=== PATIENT | male | born 1965 | race Two or more races ===

== ENCOUNTER 2019-06-08 08:59 | Inpatient (IN) | payer BC, OTHER ==
[~2019-06-08] VITALS: Ht 154.9 cm; Wt 68.6 kg
[2019-06-08 09:52] LABS: Basophils # (auto) 0.1 uL; Basophils % (auto) 0.5 % (0.0-2.0); Lymphocytes # (auto) 1.7 uL
[2019-06-08 09:53] LABS: Eosinophils # (auto) 0.2 uL; Hematocrit 42.9 % (41.0-53.0); Mean Corpuscular Hgb Conc. 34.9 g/dL (32.0-36.0); Mean Corpuscular Volume 100.2 fL (80.0-100.0); Monocytes # (auto) 1.1 uL; Neutrophils # (auto) 12.4 uL; Neutrophils % (auto) 80.5 % (37.0-80.0); Platelet Count (auto) 185 10^3/uL (140-450); Red Blood Cells 4.28 10^6/uL (4.5-5.90); Red Cell Distribution Width 12.9 % (11.8-14.3); White Blood Cell 15.5 10^3/uL (4.4-10.8)
[2019-06-08 09:57] LABS: Urine Bacteria FEW /hpf (None Seen); Urine Blood 2+ /uL (Negative); Urine Budding Yeast OCCASIONAL /hpf (None Seen); Urine Mucus FEW (None Seen); Urine Specific Gravity 1.023 (1.001-1.035); Urine WBC 446 /hpf (0 - 3); Urine WBC Clumps PRESENT /hpf (None Seen)
[2019-06-08 10:00] LABS: Albumin 3.4 g/dL (3.4-5.0); Anion Gap 7 (5-15); BUN/Creatinine Ratio 12.4; Blood Urea Nitrogen 12 mg/dL (7-18); Calcium 8.9 mg/dL (8.5-10.1); Carbon Dioxide 26 mmol/L (21-32); Chloride 106 mmol/L (98-107); GFR African American 103 mL/min; GFR Non-African American 85 mL/min; Glucose 117 mg/dL (74-106); Potassium 4.1 mmol/L (3.5-5.1); Sodium 139 mmol/L (136-145)
[2019-06-08 10:03] LABS: Alanine Aminotransferase 32 U/L (16-61); Alkaline Phosphatase 78 U/L (45-117); Aspartate Aminotransferase 20 U/L (15-37); Bilirubin, Total 1.3 mg/dL (0.2-1.0); Total Protein 7.7 g/dL (6.4-8.2)
[2019-06-08] MEDS ORDERED: SODIUM CHLORIDE 0.9% 1,000 ML IV ONE ×2 (11:00)
[2019-06-08] MEDS ORDERED: cefTRIAXone SOD 1,000 MG VL IM ONE (11:00)
[2019-06-08] MEDS ORDERED: IOHEXOL 300 MG/ML 100ML BOTTLE IJ ONE (11:04)
[2019-06-08] MEDS ORDERED: cefTRIAXone 1GM/50ML D5W 50 ML IV ONE (12:00)
[2019-06-08] MEDS ORDERED: TEMAZEPAM 15 MG CAP PO PRN (12:45)
[2019-06-08] MEDS ORDERED: PROMETHAZINE HCL 25 MG/ML 1ML IV PRN (12:45)
[2019-06-08] MEDS ORDERED: ACETAMINOPHEN 500 MG TAB PO PRN (12:45)
[2019-06-08] MEDS: SODIUM CHLORIDE 0.9% 1,000 ML IV SCH ×2 (12:50→22:11)
--- NOTE | 2019-06-08 14:44 | NUR ---
MS admit from ER STEPHANI HOLLAND admitted to tele/MS after SBAR received. Patient oriented to GREG MCCLENDON, RN primary RN, unit, room 223A, bed, and unit policies regarding patient care and visiting hours. Patient weighed by bedscale and encouraged to call if they need something. All questions and concerns addressed, patient verbalized understanding. Bed in low and locked position, rails up x2, no-slip socks on. Family at bedside.
[2019-06-08] MEDS ORDERED: GARL400T13 PO (15:05)
[2019-06-08] MEDS ORDERED: IBUP400T21 PO (15:05)
--- NOTE | 2019-06-08 15:40 | NUR ---
JAGRUTI HEATH AT BEDSIDE-UROLOGY
[2019-06-08] MEDS ORDERED: PNEUMOCOCCAL VACC POLYS 25 MCG/0.5 ML VIAL IM ONE (16:45)
[2019-06-08 17:29] VITALS: BP 126/75
--- NOTE | 2019-06-08 18:58 | NUR ---
PATIENT COMPLAINING OF PAIN SLIGHT FEVER 99.0 AND PAIN WHOLE BODY, PATIENT ABLE TO URINATE BUT PAINFUL. COOLING MEASURES INITIATED AND WILL MEDICATE FOR PAIN ORDERED.
[2019-06-08] MEDS: traMADol HCL 50 MG TAB PO PRN (19:00)
--- NOTE | 2019-06-08 19:35 | NUR ---
Opening Shift Note Assumed care of patient, awake and alert x4. No S/S of distress/SOB. Patient was recently medicated for pain with tramadol as ordered, patient states he feels like it is working and currently has pain 4/0-10 which is tolerable for him. Instructed on POC and to call for assist PRN, will continue to monitor for changes Q1hr and PRN.
[2019-06-08 21:46] VITALS: BP 132/77
[2019-06-08] MEDS: FAMOTIDINE 20 MG TAB PO SCH (22:11)
[2019-06-09 04:46] VITALS: BP 126/75
[2019-06-09 07:17] LABS: Basophils # (auto) 0 uL; Basophils % (auto) 0.3 % (0.0-2.0); Eosinophils # (auto) 0.1 uL; Eosinophils % (auto) 0.6 % (0.0-7.0); Hematocrit 38.8 % (41.0-53.0); Hemoglobin 13.9 g/dL (13.5-17.5); Lymphocytes # (auto) 0.8 uL; Lymphocytes % (auto) 7.8 % (10.0-50.0); Mean Corpuscular Hemoglobin 35.9 pg (28.0-32.0); Mean Corpuscular Hgb Conc. 35.7 g/dL (32.0-36.0); Mean Corpuscular Volume 100.4 fL (80.0-100.0); Monocytes # (auto) 0.7 uL; Monocytes % (auto) 7.1 % (0.0-12.0); Neutrophils # (auto) 8.8 uL; Neutrophils % (auto) 84.2 % (37.0-80.0); Platelet Count (auto) 168 10^3/uL (140-450); Red Blood Cells 3.86 10^6/uL (4.5-5.90); Red Cell Distribution Width 12.7 % (11.8-14.3); White Blood Cell 10.4 10^3/uL (4.4-10.8)
[2019-06-09 07:33] LABS: Albumin 2.9 g/dL (3.4-5.0); BUN/Creatinine Ratio 11.9
[2019-06-09 07:35] LABS: Bilirubin, Total 0.8 mg/dL (0.2-1.0); Total Protein 6.6 g/dL (6.4-8.2)
--- NOTE | 2019-06-09 07:55 | NUR ---
Opening Shift Note Assumed care of patient, awake and alert. No S/S of distress/SOB or pain. Instructed on POC and to call for assist PRN, will continue to monitor for changes Q1hr and PRN.
[2019-06-09 08:42] VITALS: BP 131/82
[2019-06-09] MEDS: cefTRIAXone 1GM/50ML D5W 50 ML IV SCH (09:13)
[2019-06-09] MEDS: FAMOTIDINE 20 MG TAB PO SCH ×2 (09:13→21:59)
[2019-06-09] MEDS: SODIUM CHLORIDE 0.9% 1,000 ML IV SCH (09:14)
[2019-06-09 12:00] VITALS: BP 137/79
--- NOTE | 2019-06-09 12:15 | NUR ---
PAGED [employer] OPERATOR LEFT MESSAGE REGARDING NEW ORDER FOR TRANSPORT TO [facility]
[2019-06-09] MEDS: traMADol HCL 50 MG TAB PO PRN (13:29)
[2019-06-09] MEDS: SODIUM CHLOR 0.9% PF (SALINE LOCK) 10ML VIAL/SYR IV SCH ×2 (13:30→21:59)
--- NOTE | 2019-06-09 16:44 | NUR ---
Transfer packet faxed to [facility]. [facility] is on will call. I have not heard back from [facility] as of yet
[2019-06-09 17:00] VITALS: BP 131/74
--- NOTE | 2019-06-09 17:58 | NUR ---
PT AWAKE ALERT FAMILY AT BEDSIDE, NOTIFIED PT THAT GLOVE OPERATOR HAS FAXED HIS PAPERWORK OVER TO [facility], AWAITING WORD BACK FROM THEM TO TRANSFER
--- NOTE | 2019-06-09 19:50 | NUR ---
Patient called complaining of feeling feverish. Assessed the temperature orally it was 99.9 degrees. Blankets removed and cooling measures implemented, will reassess and continue to monitor patient.
--- NOTE | 2019-06-09 20:15 | NUR ---
Temperature reassessed Oral temperature is now 99.4 degrees, cooling measures are still in place. Patient states he feels a little better but still warm.
[2019-06-09 23:14] VITALS: BP 142/87
[2019-06-10 05:21] VITALS: BP 120/70
[2019-06-10] MEDS: SODIUM CHLOR 0.9% PF (SALINE LOCK) 10ML VIAL/SYR IV SCH ×3 (05:39→21:14)
[2019-06-10 10:00] VITALS: BP 136/70
[2019-06-10] MEDS: FAMOTIDINE 20 MG TAB PO SCH ×2 (10:09→21:13)
[2019-06-10] MEDS: cefTRIAXone 1GM/50ML D5W 50 ML IV SCH (10:09)
[2019-06-10 13:00] VITALS: BP 110/70
[2019-06-10 14:00] VITALS: BP 110/70
--- NOTE | 2019-06-10 14:12 | NUR ---
NUTRITION CONSULT/ASSESSMENT NOTES Please refer to link notes of nutrition screen form filed under the intervention section of the plan of care for further details. Est. Needs: 1750 kcal to 2150 kcal (25-30 kcal/kgBW), 71 gms to 106 gms pro (1.0-1.5 gms/kgBW d/t mod hypoalbuminemia, CA). Will continue to monitor pertinent labs and reassess nutrient need prn Thank you for this consult. Addendum: 06/10/19 at [address] Amended: Links added.
--- NOTE | 2019-06-10 15:42 | NUR ---
TRANSFER: [facility] ([facility] has denied pt due to no confirmed dx via bx
[2019-06-10 17:00] VITALS: BP 123/77
--- NOTE | 2019-06-10 18:55 | NUR ---
END OF SHIFT NOTE PATIENT AWAKE AND ALERT SITTING UP IN BED. NO S/S OF DISTRESS OR SOB NOTED. BED IN LOWEST LOCKED POSITION, CALL LIGHT WITHIN REACH. WILL ENDORSE CARE TO NOC RN.
--- NOTE | 2019-06-10 19:45 | NUR ---
Opening Shift Note Assumed care of patient, awake and alert. No S/S of distress/SOB or pain. Bed locked in lowest position, side rails upx2, call light within reach. Instructed on POC and to call for assist PRN, will continue to monitor for changes Q1hr and PRN.
[2019-06-10 21:30] VITALS: BP 121/88
[2019-06-11 05:00] VITALS: BP 112/72
[2019-06-11] MEDS: SODIUM CHLOR 0.9% PF (SALINE LOCK) 10ML VIAL/SYR IV SCH ×2 (05:56→14:00)
--- NOTE | 2019-06-11 07:50 | NUR ---
OPENING SHIFT NOTE ASSUMED CARE OF PATIENT. PATIENT AWAKE AND ALERT SITTING UP IN BED. NO S/S OF DISTRESS OR SOB NOTED. BED IN LOWEST LOCKED POSITION, CALL LIGHT WITHIN REACH REVIEWED POC. WILL CONTINUE TO MONITOR.
[2019-06-11 09:00] VITALS: BP 105/59
[2019-06-11] MEDS: FAMOTIDINE 20 MG TAB PO SCH (10:53)
[2019-06-11] MEDS: cefTRIAXone 1GM/50ML D5W 50 ML IV SCH (10:54)
--- NOTE | 2019-06-11 11:45 | NUR ---
AT BEDSIDE DR HE AT BEDSIDE. NEW ORDERS RECEIVED. WILL CARRY OUT ORDERED.
--- NOTE | 2019-06-11 12:00 | NUR ---
CYTOLOGY URINE SENT FOR CYTOLOGY AT THIS TIME.
[2019-06-11 13:00] VITALS: BP 96/63
[2019-06-11 16:30] VITALS: BP 114/69
[2019-06-11 16:53] VITALS: BP 114/69
--- NOTE | 2019-06-11 16:55 | NUR ---
NO CALL BACKS FROM [facility] OR [facility], WILL HAVE TO TRY MORE TOMORROW
--- NOTE | 2019-06-11 18:45 | NUR ---
DISCHARGED PATIENT DISCHARGED HOME AFTER ALL DISCHARGE INFORMATION GIVEN AND ALL QUESTIONS AND CONCERNS ADDRESSED. PATIENT WAS GIVEN INFORMATION TO REACH OUT TO [facility] AND [facility] AND INSTRUCTED TO CALL [facility] IF NOTHING HAS BEEN TAKEN CARE OF WITHIN 3 WEEKS. PATIENT GIVEN MARK MANUEL CARD TO ASSIST IN PCP. IV WAS REMOVED USING CLEAN STERILE TECHNIQUE, CATHETER INTACT UPON REMOVAL, PRESSURE DRESSING APPLIED. PNUMOVAX ADMINISTERED AT DISCHARGE. NO S/S OF DISTRESS OR SOB NOTED UPON DISCHARGE.
== END 2019-06-11 18:45 | disposition home or self-care (01) | DRG 872 ==
LOC: ER 08:59 → OVERFLOW 12:40 → UNDOADMIN 12:40 → OVERFLOW 12:41 → CENTRAL 14:47
PROVIDERS: ADMIT Internal Medicine; ATTEND Internal Medicine
DX: A41.51 Sepsis due to Escherichia coli [E. coli] (principal); N39.0 Urinary tract infection, site not specified; F17.210 Nicotine dependence, cigarettes, uncomplicated; Z80.51 Family history of malignant neoplasm of kidney; Z82.49 Family history of ischemic heart disease and other diseases of the circulatory system; Z85.528 Personal history of other malignant neoplasm of kidney; Z83.3 Family history of diabetes mellitus; Z87.442 Personal history of urinary calculi
CPT/HCPCS: 36415; 74176; 74177; 76775; 80053; 81001; 85025; 87086; 87088; 87186; 96365; G0378; J0696

== ENCOUNTER 2019-06-30 14:24 | Emergency (ER) | payer BC ==
[~2019-06-30] VITALS: Ht 177.8 cm; Wt 79.4 kg
[~2019-06-30 14:24] MED LIST: GARL400T13 PO; IBUP400T21 PO
[2019-06-30 15:39] LABS: Urine Bacteria NONE SEEN /hpf (None Seen); Urine Blood 3+ /uL (Negative); Urine WBC 1147 /hpf (0 - 3); Urine WBC Clumps PRESENT /hpf (None Seen)
[2019-06-30 15:45] LABS: Urine Specific Gravity 1.024 (1.001-1.035)
[2019-06-30] MEDS: cefTRIAXone SOD 1,000 MG VL IM ONE ×3 (18:10→18:34)
[2019-06-30 18:34] VITALS: BP 120/74
== END 2019-06-30 18:41 | disposition home or self-care (01) ==
LOC: ER 14:32
DX: N39.0 Urinary tract infection, site not specified (principal); F17.210 Nicotine dependence, cigarettes, uncomplicated; Z79.1 Long term (current) use of non-steroidal anti-inflammatories (NSAID); Z79.899 Other long term (current) drug therapy
CPT/HCPCS: 81001; 96372; 99283; J0696

== ENCOUNTER 2021-06-25 14:25 | Inpatient (IN) | payer BC, MEDICAID, OTHER ==
[~2021-06-25] VITALS: Ht 188 cm; Wt 79.0 kg
[~2021-06-25 14:25] MED LIST changes: -IBUP400T21 PO; +IBUP400T22 PO
[2021-06-25] MEDS ORDERED: ACETAMINOPHEN 500 MG TAB PO ONE (14:45)
[2021-06-25 15:14] LABS: Urine Bacteria FEW /hpf (None Seen); Urine Blood TRACE /uL (Negative); Urine WBC 112 /hpf (0 - 3)
[2021-06-25 15:23] LABS: Albumin 3.3 g/dL (3.4-5.0); Calcium 8.7 mg/dL (8.5-10.1); Potassium 3.7 mmol/L (3.5-5.1)
[2021-06-25 15:27] LABS: BUN/Creatinine Ratio 6.5; Bilirubin, Total 1.9 mg/dL (0.2-1.0)
[2021-06-25 15:29] LABS: Hematocrit 44.3 % (41.0-53.0); Hemoglobin 15.6 g/dL (13.5-17.5); Mean Corpuscular Hemoglobin 37.1 pg (28.0-32.0); Mean Corpuscular Hgb Conc. 35.2 g/dL (32.0-36.0); Mean Corpuscular Volume 105.5 fL (80.0-100.0)
[2021-06-25 15:41] LABS: Basophils % (manual) 0 (0.0-2.0); Blast Cells 0; Eosinophils % (manual) 0 (0-7); Metamyelocytes % 0; Myelocytes % 0; Promyelocytes % 0; Reactive Lymphocytes 0
[2021-06-25] MEDS ORDERED: cefTRIAXone 1GM/50ML D5W 50 ML IV ONE (16:00)
[2021-06-25 16:30] LABS: Band Neutrophils % (manual) 12; Lymphocytes % (manual) 2 (10.0-50.0); Monocytes % (manual) 7 (0-12)
[2021-06-25] MEDS ORDERED: PIPERACILLIN-TAZOB 3.375GM 100 ML IV ONE (17:30)
[2021-06-25] MEDS ORDERED: NITROGLYCERIN 0.4 MG SL TAB SL PRN (17:30)
[2021-06-25] MEDS ORDERED: MORPHINE SULF INJ 2 MG/ML SYRINGE 1ML IV PRN ×2 (17:30→18:00)
[2021-06-25] MEDS ORDERED: PROMETHAZINE HCL 25 MG/ML 1ML IV PRN (18:00)
[2021-06-25] MEDS ORDERED: traMADol HCL 50 MG TAB PO PRN (18:00)
[2021-06-25] MEDS ORDERED: TEMAZEPAM 15 MG CAP PO PRN (18:00)
[2021-06-25 18:38] LABS: Amylase 48 U/L (25-115); Lipase 95 U/L (73-393)
[2021-06-25] MEDS ORDERED: ACETAMINOPHEN 500 MG TAB PO PRN ×2 (20:15→21:00)
[2021-06-25] MEDS: FAMOTIDINE 20 MG TAB PO SCH (22:00)
[2021-06-26] VITALS (7 sets, daily range): BP systolic 106–117; BP diastolic 66–75
[2021-06-26] MEDS: PIPERACILLIN-TAZOB 3.375GM 100 ML IV SCH ×4 (00:10→18:21)
[2021-06-26 05:21] LABS: Basophils # (auto) 0.1 10 ^3/uL (0-0.2); Eosinophils # (auto) 0.2 10 ^3/uL (0-0.8); Hemoglobin 14.5 g/dL (13.5-17.5); Lymphocytes # (auto) 1.8 10 ^3/uL (0.4-5.4); Red Blood Cells 3.81 10^6/uL (4.5-5.90); White Blood Cell 13.1 10^3/uL (4.4-10.8)
[2021-06-26 05:23] LABS: Basophils % (auto) 0.4 % (0.0-2.0); Eosinophils % (auto) 1.9 % (0.0-7.0); Hematocrit 40.3 % (41.0-53.0); Lymphocytes % (auto) 13.8 % (10.0-50.0); Mean Corpuscular Hemoglobin 38.2 pg (28.0-32.0); Mean Corpuscular Hgb Conc. 36.1 g/dL (32.0-36.0); Mean Corpuscular Volume 105.7 fL (80.0-100.0); Monocytes # (auto) 0.9 10 ^3/uL (0-1.3); Monocytes % (auto) 6.7 % (0.0-12.0); Neutrophils # (auto) 10.1 10 ^3/uL (1.6-8.6); Neutrophils % (auto) 77.2 % (37.0-80.0); Red Cell Distribution Width 11.9 % (11.8-14.3)
[2021-06-26 06:11] LABS: Potassium 3.7 mmol/L (3.5-5.1)
[2021-06-26 06:22] LABS: Albumin 2.8 g/dL (3.4-5.0); BUN/Creatinine Ratio 10.8; Calcium 8.3 mg/dL (8.5-10.1); Total Protein 6.9 g/dL (6.4-8.2)
[2021-06-26] MEDS ORDERED: GADOTERATE MEG 10 MMOL/20ml INJ (0.5MMOL/ml) IV ONE (09:29)
[2021-06-26] MEDS ORDERED: ENOXAPARIN SOD 40 MG/0.4 ML SYRINGE SC SCH (10:00)
[2021-06-26] MEDS: FAMOTIDINE 20 MG TAB PO SCH ×2 (11:28→21:36)
[2021-06-26] MEDS ORDERED: FOLI1TAB6 PO (18:55)
[2021-06-26] MEDS ORDERED: THIA50CA PO (18:55)
[2021-06-26] MEDS ORDERED: LEVO500T31 PO (18:55)
== END 2021-06-26 21:50 | disposition home health service (06) | DRG 720 ==
LOC: ER 14:25 → TELE 17:24 → TELE-WESTW 23:10
PROVIDERS: ADMIT Internal Medicine; ATTEND Internal Medicine
DX: A41.9 Sepsis, unspecified organism (principal); K76.0 Fatty (change of) liver, not elsewhere classified; F10.20 Alcohol dependence, uncomplicated; F17.210 Nicotine dependence, cigarettes, uncomplicated; N39.0 Urinary tract infection, site not specified; Z20.822 Contact with and (suspected) exposure to COVID-19; Y90.9 Presence of alcohol in blood, level not specified; K57.90 Diverticulosis of intestine, part unspecified, without perforation or abscess without bleeding; Z85.528 Personal history of other malignant neoplasm of kidney; Z87.442 Personal history of urinary calculi; Z90.5 Acquired absence of kidney; Z80.8 Family history of malignant neoplasm of other organs or systems
CPT/HCPCS: 36415; 71045; 74176; 74183; 80053; 81001; 82150; 82270; 82378; 83605; 83690; 85007; 85025; 85027; 85652; 87040; 87086; 87426; 96365; 96367; G0378; J0696; J2543

== ENCOUNTER 2023-08-23 13:32 | Inpatient (IN) | payer MEDICAID ==
[~2023-08-23] VITALS: Ht 177.8 cm; Wt 80.9 kg
[~2023-08-23 13:32] MED LIST changes: +FOLI-119 PO; +IBUP-1453 PO; -IBUP400T22 PO; +LEVO500T31 PO; +THIA50CA PO
[2023-08-23 14:33] LABS: Basophils # (auto) 0.1 10 ^3/uL (0-0.2); Basophils % (auto) 0.5 % (0.0-2.0); Eosinophils # (auto) 0.3 10 ^3/uL (0-0.8); Eosinophils % (auto) 2.1 % (0.0-7.0); Hematocrit 36.1 % (41.0-53.0); Hemoglobin 12.4 g/dL (13.5-17.5); Lymphocytes # (auto) 4.5 10 ^3/uL (0.4-5.4); Lymphocytes % (auto) 33.7 % (10.0-50.0); Mean Corpuscular Hemoglobin 33.1 pg (28.0-32.0); Mean Corpuscular Hgb Conc. 34.4 g/dL (32.0-36.0); Mean Corpuscular Volume 96.1 fL (80.0-100.0); Monocytes # (auto) 0.5 10 ^3/uL (0-1.3); Monocytes % (auto) 3.4 % (0.0-12.0); Neutrophils # (auto) 8.1 10 ^3/uL (1.6-8.6); Neutrophils % (auto) 60.3 % (37.0-80.0); Red Blood Cells 3.76 10^6/uL (4.5-5.90); Red Cell Distribution Width 12.9 % (11.8-14.3); White Blood Cell 13.5 10^3/uL (4.4-10.8)
[2023-08-23 14:48] LABS: INR 1.09 (0.9-1.15); Partial Thromboplastin Time 26.3 SEC (24.5-34.5); Prothrombin Time 11.4 sec (9.3-11.8)
[2023-08-23 14:51] LABS: Urine Bacteria NONE SEEN /hpf (None Seen); Urine Blood Negative /uL (Negative); Urine Clarity Clear (Clear); Urine Color Yellow (Yellow); Urine Protein, UAD Negative (Negative); Urine Specific Gravity 1.027 (1.001-1.035); Urine Urobilinogen Normal (Negative); Urine WBC 1 /hpf (0 - 3)
[2023-08-23 15:18] LABS: Alanine Aminotransferase 45 U/L (7-40); Albumin 4.4 g/dL (3.2-4.8); Alkaline Phosphatase 68 U/L (46-116); Anion Gap 8 (5-15); Aspartate Aminotransferase 31 U/L (13-40); BUN/Creatinine Ratio 18.9 (10.0-20.0); Bilirubin, Total 0.7 mg/dL (0.2-1.0); Blood Urea Nitrogen 21 mg/dL (9-23); Calcium 9.4 mg/dL (8.5-10.1); Carbon Dioxide 24 mmol/L (20-30); Chloride 107 mmol/L (98-107); Glucose 119 mg/dL (74-106); Potassium 4.2 mmol/L (3.5-5.1); Sodium 139 mmol/L (136-145); Total Protein 7.4 g/dL (5.7-8.2)
[2023-08-23] MEDS ORDERED: PANTOPRAZOLE 40 MG/10 ML VIAL INJ IV ONE (16:15)
[2023-08-23] MEDS ORDERED: diphenhdrAMINE HCL 25 MG CAP PO ONE (21:00)
[2023-08-24 00:23] VITALS: PULSE 85; RESP 15; O2SAT 99
[2023-08-24] MEDS ORDERED: MORPHINE SULFATE INJ 2 MG/ml SYRG IV PRN (01:00)
[2023-08-24] MEDS ORDERED: ONDANSETRON HCL 4 MG/2 ML VIAL IV PRN (01:00)
[2023-08-24] MEDS ORDERED: SODIUM CHLORIDE 0.9% 1,000 ML IV ONE (01:00)
[2023-08-24] MEDS ORDERED: PANTOPRAZOLE 40mg/50ML NS AE 50 ML IV ONE (01:00)
[2023-08-24] MEDS ORDERED: PANTOPRAZOLE 80 MG in SODIUM CHL 0.9% 100 ML IV ONE (01:00)
[2023-08-24 01:44] LABS: Basophils # (auto) 0.1 10 ^3/uL (0-0.2); Basophils % (auto) 0.5 % (0.0-2.0); Eosinophils # (auto) 0.3 10 ^3/uL (0-0.8); Hematocrit 33.7 % (41.0-53.0); Hemoglobin 11.6 g/dL (13.5-17.5); Lymphocytes # (auto) 4.3 10 ^3/uL (0.4-5.4); Lymphocytes % (auto) 30.7 % (10.0-50.0); Mean Corpuscular Hemoglobin 33.2 pg (28.0-32.0); Mean Corpuscular Hgb Conc. 34.5 g/dL (32.0-36.0); Mean Corpuscular Volume 96.2 fL (80.0-100.0); Monocytes # (auto) 0.6 10 ^3/uL (0-1.3); Monocytes % (auto) 4.1 % (0.0-12.0); Neutrophils # (auto) 8.8 10 ^3/uL (1.6-8.6); Neutrophils % (auto) 62.7 % (37.0-80.0); Red Cell Distribution Width 13.1 % (11.8-14.3)
[2023-08-24] MEDS ORDERED: PANTOPRAZOLE 40 MG/10 ML VIAL INJ IV ONE (02:36)
[2023-08-24 10:59] VITALS: PULSE 65; RESP 20; O2SAT 96
[2023-08-24] MEDS ORDERED: diphenhdrAMINE HCL 25 MG CAP PO ONE (13:15)
[2023-08-24 15:45] VITALS: BP 110/68; PULSE 69; RESP 18; TEMP 97.6; O2SAT 100
[2023-08-24 16:54] VITALS: BP 110/68; PULSE 69; RESP 18; TEMP 97.6; O2SAT 100
[2023-08-24 20:00] VITALS: PULSE 69
[2023-08-24] MEDS: PANTOPRAZOLE 40 MG/10 ML VIAL INJ IV SCH (21:19)
[2023-08-24 22:00] VITALS: BP 107/62; PULSE 75; RESP 18; TEMP 98.2; O2SAT 98
[2023-08-25 05:00] VITALS: BP 93/53; PULSE 72; RESP 19; TEMP 98.1; O2SAT 98
[2023-08-25 08:00] VITALS: PULSE 67; PULSE 76; RESP 19
[2023-08-25 08:30] VITALS: BP 103/52; PULSE 80; RESP 18; TEMP 98.2; O2SAT 96
[2023-08-25] MEDS: PANTOPRAZOLE 40 MG/10 ML VIAL INJ IV SCH (09:36)
[2023-08-25] MEDS ORDERED: FLUMAZENIL 0.1 MG/ML INJ 10ML MDV IV ONE (11:54)
[2023-08-25] MEDS ORDERED: NALOXONE HCL 0.4 MG/ML VIAL ONE (11:55)
[2023-08-25] MEDS ORDERED: diphenhdrAMINE HCL 50 MG/1 ML VL ONE (11:55)
[2023-08-25] MEDS ORDERED: LIDOCAINE VISCOUS 2% 15ML UD ONE (12:45)
[2023-08-25 12:48] VITALS: PULSE 67; RESP 18; O2SAT 99
[2023-08-25] MEDS: fentaNYL CITRATE 100 MCG/2 ML VL ONE ×2 (12:59→13:02)
[2023-08-25] MEDS: MIDAZOLAM HCL 5 MG/ML-1ML VIAL ONE ×3 (12:59→13:07)
[2023-08-25 13:12] VITALS: PULSE 68; RESP 12; O2SAT 96
[2023-08-25] MEDS ORDERED: PANT40TA2 PO (13:21)
[2023-08-25] MEDS ORDERED: SUCR1SUS26 PO (13:21)
[2023-08-25 13:45] VITALS: BP 127/50; PULSE 69; RESP 17; O2SAT 98
[2023-08-25] MEDS ORDERED: diphenhdrAMINE HCL 25 MG CAP PO ONE (15:45)
== END 2023-08-25 15:00 | disposition home or self-care (01) | DRG 241 ==
LOC: ER 13:32 → TELE 08-24 00:52 → TELE-EAST 08-24 15:13
PROVIDERS: ADMIT Nurse Practitioner Family; ATTEND Nurse Practitioner Family
PROC: 0DB78ZX Excision of Stomach, Pylorus, Via Natural or Artificial Opening Endoscopic, Diagnostic (ICD-10-PCS; principal; 2023-08-25 13:03)
DX: K29.71 Gastritis, unspecified, with bleeding (principal); K22.11 Ulcer of esophagus with bleeding; I95.9 Hypotension, unspecified; K29.81 Duodenitis with bleeding; K25.4 Chronic or unspecified gastric ulcer with hemorrhage; D64.9 Anemia, unspecified; F17.210 Nicotine dependence, cigarettes, uncomplicated; D72.829 Elevated white blood cell count, unspecified; I10 Essential (primary) hypertension; Z79.1 Long term (current) use of non-steroidal anti-inflammatories (NSAID); Z85.528 Personal history of other malignant neoplasm of kidney; Z87.442 Personal history of urinary calculi; Z90.5 Acquired absence of kidney
CPT/HCPCS: 36415; 74176; 80053; 81001; 84484; 85025; 85610; 85730; 87040; 93005; C9113; G0378; J2250

== ENCOUNTER 2025-03-10 09:48 | Emergency (ER) | payer MEDICAID ==
[~2025-03-10] VITALS: Ht 177.8 cm; Wt 75.0 kg
[~2025-03-10 09:48] MED LIST changes: -FOLI-119 PO; -GARL400T13 PO; -IBUP-1453 PO; -LEVO500T31 PO; +PANT40TA2 PO; +SUCR1SUS26 PO; -THIA50CA PO
[2025-03-10 10:40] VITALS: BP 129/85; PULSE 92; RESP 18; TEMP 98.9; O2SAT 98
--- NOTE | 2025-03-10 10:43 | ED.PDOC ---
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 Reports landing predominantly on his right leg and no complains of pain to the ankle that is aggravated with ambulation. No pain at rest but pain is 10/10 w/ ambulation. Visiting numbness tingling to the affected extremity. Chief Complaint: Lower Extremity Time Seen by MD: 10:04 Primary Care Provider: unknown Reviewed Notes: Nurses Notes, Medications, Allergies Allergies: Coded Allergies: NO KNOWN ALLERGIES (Unverified , 08/29/14) Home Meds Active Scripts Sucralfate (CARAFATE SUSP) 1 Gm/10 Ml Ss, 10 ML PO QID for 30 Days, #1200 ML 3 Refills Prov:EBENEZER AVALOS MD 08/25/23 Pantoprazole Sodium Sesquihydr (Protonix) 40 Mg Tab, 40 MG PO BID, #60 TAB Prov:EBENEZER AVALOS MD 08/25/23 Information Source: Patient Mode of Arrival: Wheelchair Past Medical History PAST MEDICAL HISTORY: Cancer, Kidney Stones Surgical History: Denies all surgeries Family History Family History: Reviewed,noncontributory to illness Social History Smoker: Cigarettes, Less Than 1 Pack/Day Alcohol: Occasionally Drugs: Denies Drug Use Lives In: Home All Other Systems: Reviewed and Negative (per hpi) Physical Exam General Appearance: No Apparent Distress, Normal HEENT: Normal ENT Inspection, Pharynx Normal, TMs Normal Neck: Full Range of Motion, Non-Tender, Normal, Normal Inspection Respiratory: Chest Non-Tender, Lungs Clear, No Accessory Muscle Use, No Respiratory Distress, Normal Breath Sounds Cardiovascular: No Murmur, No Gallop, Regular Rate/Rhythm Breast Exam: Deferred Gastrointestinal: No Organomegaly, Non Tender, No Pulsatile Mass, Normal Bowel Sounds, Soft Genitalia: Deferred Pelvic: Deferred Rectal: Deferred Extremities: No calf tenderness, Normal capillary refill, Normal inspection, Normal range of motion, Non-tender, No pedal edema Musculoskeletal : Apperance: Normal Neurologic: Alert, No Motor Deficits, Normal Affect, Normal Mood, No Sensory Deficits Cerebellar Function: Normal Reflexes: Normal Skin: Dry, Normal Color, Warm Lymphatic: No Adenopathy Was a procedure done? Was a procedure done?: No Images 1 - No ecchymosis but soft tissue swelling to the lateral malleolus. No pain with dorsiflexion plantar flexion. Pain with the eversion ED eversion. Dorsalis pedis pulses 2+. Distal sensation intact and cap refill less than 2 seconds Differential Diagnosis EXT Differential Diagnosis: Fracture, Sprain, Dislocation X-Ray, Labs, Meds, VS Vital Signs Date Time Temp Pulse Resp B/P (MAP) Pulse Ox O2 Delivery O2 Flow Rate FiO2 03/10/25 10:40 92 03/10/25 10:40 98.9 92 18 129/85 (100) 98 98.9 03/10/25 10:14 98.9 92 18 129/85 (100) 98 98.9 Current Medications Medications (Trade) Dose Ordered Sig/Migdalia Route Start Time Stop Time Status Last Admin Acetaminophen/ Hydrocodone Bitart (Tarpley 10/325MG Tab) 1 tab ONCE ONCE PO 03/10/25 12:30 03/10/25 12:31 DC 03/10/25 12:23 Ketorolac Tromethamine (Toradol Injection) 60 mg ONCE ONCE IM 03/10/25 14:30 03/10/25 14:32 DC 03/10/25 14:46 PATIENT: STEPHANI HOLLANDACCT: [id number]: [id number] : 1965 LOC: ER ROOM / BED: / AGE / SEX: 59 / M ADM STATUS: REG ER SERVICE 1042 ORDERING PHYSICIAN: UZIEL LAW NP PROCEDURE(s): RANKL - R ANKLE 3 VIEW REASON: fall from ladder. r/o fracture ORDER NUMBER(s): [id number], ACCESSION NUMBER(s): [id number] PROCEDURE: Right ankle radiographs. INDICATION: fall from ladder. r/o fracture TECHNIQUE: 3 views of the right ankle were obtained. COMPARISON: None FINDINGS: There is acute fracture through the calcaneus. Lateral ankle soft tissue swelling. Ankle joint effusion. IMPRESSION: 1. Acute fracture through the calcaneus. Lateral ankle soft tissue swelling. ATED BY: SIS CARLISLE MD DICTATED DATE/TIME: 03/10/25 1119 SIGNED BY: SIS CARLISLE MD SIGNED DATE/TIME: 03/10/25 1119 CC: X-Ray, Labs, Meds, VS Comment 1. Acute fracture through the calcaneus. Lateral ankle soft tissue swelling. 11:45 a.m.: Consulted with ortho to determine if the acute calcaneal fracture is operative versus nonoperative. Ortho seen patient at bedside and bulky brandon splint applied at bedside by orthopedic radiologic technologist Patient will be seen outpatient On reevaluation, patient had symptomatic improvement. Patient is stable for discharge at this time. External notes reviewed. Test results and diagnostic imaging interpreted. All diagnostic findings, discharge care, education and instructions provided Follow-up with PCP in 2 to 3 days Patient verbalized understanding and agreed to treatment plan Vital signs stable, afebrile, no acute distress noted Patient ambulatory with strong steady gait Advised to return precautions for any new or worsening symptoms, return to ER immediately for re-evaluation Patient is aware that the purpose of this visit was for an acute medical emergency requiring emergent stabilization. Chronic conditions, including malignancies have not been ruled out. Patient is instructed to follow up with PCP as directed and discharge instructions for continued care and workup. If unable to arrange follow-up, patient is to return to the emergency department for reassessment. Patient (parent or legal guardian if applicable) was given verbal and written discharge instructions and acknowledges understanding. Time of 1ST Reevaluation: 10:42 Reevaluation 1ST: Improved Patient Education/Counseling: Diagnosis, Treatment Family Education/Counseling: Diagnosis, Treatment Departure 1 Departure Time of Disposition: 16:14 Impression: Primary Impression: Calcaneal fracture Qualified Codes: S92.002A - Unspecified fracture of left calcaneus, initial encounter for closed fracture Disposition: HOME / SELF CARE / HOMELESS Condition: Stable e-Prescriptions Hydrocodone-Acetaminophen (Hydrocodone Bitartrate/AC 5-325 mg) 1 Tab Tab 1 TAB PO Q8HP PRN for 5 Days, #15 TAB 0 Refills Prov: UZIEL LAW NP 03/10/25 Discharged With: Self Critical Care Note Critical Care Time?: No Stability Stability form required: No Heart Score Heart Score: Heart Score Response (Comments) Value History N/A 0 EKG N/A 0 Age N/A 0 Risk Factors N/A 0 Troponin N/A 0 Total 0 ZUIEL LAW NP Mar 10, 2025 10:42
--- NOTE | 2025-03-10 11:21 | DVH ---
PROCEDURE: Right ankle radiographs. INDICATION: fall from ladder. r/o fracture TECHNIQUE: 3 views of the right ankle were obtained. COMPARISON: None FINDINGS: There is acute fracture through the calcaneus. Lateral ankle soft tissue swelling. Ankle melanie int effusion. IMPRESSION: 1. Acute fracture through the calcaneus. Lateral ankle soft tissue swelling.
[2025-03-10] MEDS: HYDROcodone-ACET 10/325MG TAB PO ONE (12:23)
[2025-03-10] MEDS: KETOROLAC TROMETH 60MG/2ML VIAL IM ONE (14:46)
--- NOTE | 2025-03-10 15:26 | DVH ---
INDICATION: elval for fracture TECHNIQUE: Frontal and lateral views of the lumbar spine were obtained. COMPARISON: None FINDINGS: . There are no fractures or subluxations. Vertebral body heights and disc spaces are well m aintained. Paravertebral soft tissues are unremarkable. IMPRESSION: 1. Of the visualized spine, there is no evidence for fracture or subluxation.
--- NOTE | 2025-03-10 15:26 | DVH ---
INDICATION: elval for fracture COMPARISON: None TECHNIQUE: 3 views of the cervical spine were obtained. FINDINGS: The cervical vertebral alignment is normal. The predental space is normal. The intervertebral disc spaces are well-maintained. No significant facet arthropathy is noted. No acute fracture, vertebral compression deformity or aggressive osseous lesions. The imaged lung apices are unremarkable. IMPRESSION: No acute fracture.
--- NOTE | 2025-03-10 15:26 | DVH ---
INDICATION: elval for fracture COMPARISON: None TECHNIQUE:2 views of the thoracic spine were obtained. FINDINGS: The thoracic vertebral alignment is normal. The intervertebral disc spaces are well-maintained. No significant facet arthropathy is noted. No acute fracture, vertebral compression deformity or aggressive osseous lesions. The imaged thorax and abdomen are grossly unremarkable. IMPRESSION: No acute fracture.
--- NOTE | 2025-03-10 16:10 | DVH ---
CT CT R ANKLE WO CONTRAST INDICATION: calc fracture eval EXAM DATE: 03/10/2025 01:48 PM COMPARISON: None RADIATION DOSE: CTDIvol: 7.75 mGy, DLP: 196.96 mGy*cm PROCEDURE: Helical CT images were obtained of the right ankle without intravenous contrast. Sagittal and coronal reconstructions are provided. ADDITIONAL IMAGES: None FINDINGS: BONES: Comminuted displaced calcaneus fracture with adjacent soft tissue edema. JOINT SPACES: Maintained. No joint effusion. SOFT TISSUES: Swollen ankle. VESSELS: unremarkable. IMPRESSION: Comminuted displaced calcaneus fracture with adjacent soft tissue edema.
[2025-03-10] MEDS ORDERED: HYDR-4902 PO (16:15)
--- NOTE | 2025-03-10 19:42 | DVHINCON2 ---
Consult Note Consult Consult Note Patient: 59-year-old male Reason for Consult: Fall from height evaluation for right heel injury History of Present Illness: The patient is a 59-year-old male who fell approximately 1015 feet from a ladder. He reports landing on both feetright foot first, followed by the left. He presents with swelling and pain localized to the right heel. Denies pain elsewhere including the left foot, lower back, neck, or thoracic spine. No numbness or tingling in the lower extremities. He also denies any loss of consciousness, headache, vision changes, or shortness of breath. Review of Systems: Neurological: Negative for LOC, headache, visual changes, or paresthesias Musculoskeletal: Right heel pain and swelling. No other joint complaints Respiratory/Cardiac: Denies chest pain or SOB Physical Exam: Right heel TTP with MODERATE swelling, No open skin lesion with moderate swelling right ankle noted Gross NV Intact RIGHT HIP/KNEE EXAM FULL ROM, NO TTP, EDEMA, ERYTHEMA, WARMTH , OPEN LESION LEFT HIP AND KNEE EXAM: ROM FULL AND INTACT NO TTP, EDEMA, ERYTHEMA, WARMTH , OPEN LESION LEFT ANKLE AND HEEL EXAM : NO TTP, EDEMA, ERYTHEMA, WARMTH , OPEN LESION XRAY/CT RIGHT ANKLE: COMMINUTED Right Calcaneal fracture LUMBAR, THORACIC AND CERVICAL NO FRACTURE NOTED Assessment: Status post fall from 1015 feet with likely axial load trauma to the right heel. High suspicion for calcaneus fracture. Plan: Obtained weight-bearing foot X-rays, including lateral and axial views, and CT, Comminuted displaced Calcaneal fracture, Right, Closed noted Patient treated with BULKY MCDOWELL CAST, NWB W/crutches and 1 week followup with Ortho Pain control per ER provider @F/U if swelling improved will refer to Dr. Mireles for Surgical Eval and treatment ER for new pain , worsening of s/s or other concerns Case discussed with Oncall surgeon Dr. Nicholson who agrees with above plan All questions answered , Pt and ER provider had no further questions Plan discussed with: Patient, Other (ER PROVIDER) Visit Coding Surgery Date of Service if different f: Mar 10, 2025 Billing Provider: SIMRAN ABDALLA Surgery Visit Codes: 84388 - INP CONSULT <55 MIN SIMRAN ABDALLA Mar 10, 2025 19:42
== END 2025-03-10 14:33 | disposition home or self-care (01) ==
LOC: ER 09:48
DX: S92.001A Unspecified fracture of right calcaneus, initial encounter for closed fracture (principal); S82.891A Other fracture of right lower leg, initial encounter for closed fracture; F17.210 Nicotine dependence, cigarettes, uncomplicated; Z87.442 Personal history of urinary calculi; Z79.899 Other long term (current) drug therapy; W11.XXXA Fall on and from ladder, initial encounter; Y93.89 Activity, other specified; Y92.89 Other specified places as the place of occurrence of the external cause; Y99.8 Other external cause status
CPT/HCPCS: 29515; 72040; 72070; 72100; 73610; 73700; 96372; 99285; J1885

== ENCOUNTER 2025-03-28 08:26 | Emergency (ER) | payer MEDICAID ==
[~2025-03-28] VITALS: Ht 177.8 cm; Wt 75.0 kg
[~2025-03-28 08:26] MED LIST changes: +HYDR-4902 PO
[2025-03-28 09:08] VITALS: BP 94/73; PULSE 76; RESP 16; TEMP 98.6; O2SAT 100
[2025-03-28] MEDS ORDERED: HYDR1TAB97 PO (09:12)
--- NOTE | 2025-03-28 09:13 | ED.PDOC ---
Musculoskeletal HPI Comments 59-year-old male presents for follow up regarding in his calcaneal fracture. Had surgery March 26 and is pending follow up apt. Surgery was done outpatient at [facility] in [place]. The patient reports he was discharged with no pain medication. No other complaint or concern at this time Chief Complaint: Lower Extremity Time Seen by MD: 08:34 Primary Care Provider: VERONICA Cordero Notes: Nurses Notes, Medications, Allergies Allergies: Coded Allergies: NO KNOWN ALLERGIES (Unverified , 08/29/14) Home Meds Active Scripts Hydrocodone-Acetaminophen (Hydrocodone Bitartrate/AC 5-325 mg) 1 Tab Tab, 1 TAB PO Q8HP PRN for 5 Days, #15 TAB 0 Refills Prov:UZIEL LAW WHEEL MOLDER 03/10/25 Sucralfate (CARAFATE SUSP) 1 Gm/10 Ml Ss, 10 ML PO QID for 30 Days, #1200 ML 3 Refills Prov:EBENEZER AVALOS MD 08/25/23 Pantoprazole Sodium Sesquihydr (Protonix) 40 Mg Tab, 40 MG PO BID, #60 TAB Prov:EBENEZER AVALOS MD 08/25/23 Information Source: Patient Mode of Arrival: Wheelchair Past Medical History PAST MEDICAL HISTORY: Cancer, Kidney Stones Surgical History: Denies all surgeries Family History Family History: Reviewed,noncontributory to illness Social History Smoker: Cigarettes, Less Than 1 Pack/Day Alcohol: Occasionally Drugs: Denies Drug Use Lives In: Home All Other Systems: Reviewed and Negative (per hpi) Physical Exam General Appearance: No Apparent Distress, Normal HEENT: Normal ENT Inspection, Pharynx Normal, TMs Normal Neck: Full Range of Motion, Non-Tender, Normal, Normal Inspection Respiratory: Chest Non-Tender, Lungs Clear, No Accessory Muscle Use, No Respiratory Distress, Normal Breath Sounds Cardiovascular: No Murmur, No Gallop, Regular Rate/Rhythm Breast Exam: Deferred Gastrointestinal: No Organomegaly, Non Tender, No Pulsatile Mass, Normal Bowel Sounds, Soft Genitalia: Deferred Pelvic: Deferred Rectal: Deferred Extremities: No calf tenderness, Normal capillary refill, Normal inspection, Normal range of motion, Non-tender, No pedal edema Musculoskeletal : Location: Right Extremity Location: Foot (Foot is splinted. Distal sensation intact. Cap refill less than 3 seconds) Apperance: Normal Neurologic: Alert, grill prep cook II-XII nml as Tested (toms thing that), No Motor Deficits, Normal Affect, Normal Mood, No Sensory Deficits Cerebellar Function: Normal Reflexes: Normal Skin: Dry, Normal Color, Warm Lymphatic: No Adenopathy Was a procedure done? Was a procedure done?: No Differential Diagnosis EXT Differential Diagnosis: Fracture X-Ray, Labs, Meds, VS Vital Signs Date Time Temp Pulse Resp B/P (MAP) Pulse Ox O2 Delivery O2 Flow Rate FiO2 03/28/25 08:33 98.6 76 16 94/73 (80) 100 98.6 X-Ray, Labs, Meds, VS Comment Checked the [employer] website, no history of narcotic use within the past year. Will prescribe [place] p.o. for pain management. Education provided on possible side effects of medication including drowsiness, nausea, respiratory distress, etc. Do not drive, operate heavy machinery or make legal decisions while taking medication. Follow-up with your PMD within 24 to 48 hours. Time of 1ST Reevaluation: 09:11 Reevaluation 1ST: Improved Patient Education/Counseling: Diagnosis, Treatment Family Education/Counseling: Diagnosis, Treatment Departure 1 Departure Time of Disposition: 09:11 Impression: Primary Impression: Calcaneal fracture Qualified Codes: S92.009S - Unspecified fracture of unspecified calcaneus, sequela Disposition: HOME / SELF CARE / HOMELESS Condition: Stable e-Prescriptions Hydrocodone-Acetaminophen (Hydrocodone/Acetaminophen 5-325 mg) 1 Tab Tab 1 TAB PO Q6HP PRN for 1 Day, #4 TAB 0 Refills Prov: UZIEL LAW NP 03/28/25 Critical Care Note Critical Care Time?: No Stability Stability form required: No Heart Score Heart Score: Heart Score Response (Comments) Value History N/A 0 EKG N/A 0 Age N/A 0 Risk Factors N/A 0 Troponin N/A 0 Total 0 UZIEL LAW NP March 28, 2025 09:13
== END 2025-03-28 09:34 | disposition home or self-care (01) ==
LOC: ER 08:26
DX: S92.001D Unspecified fracture of right calcaneus, subsequent encounter for fracture with routine healing (principal); F17.210 Nicotine dependence, cigarettes, uncomplicated; Z87.442 Personal history of urinary calculi; Z79.899 Other long term (current) drug therapy; X58.XXXD Exposure to other specified factors, subsequent encounter